=== PATIENT | male | born 1950 | race Asian ===

== ENCOUNTER 2019-05-06 23:03 | Emergency (ER) | payer OTHER ==
[~2019-05-06] VITALS: Ht 167.6 cm; Wt 68.0 kg
[2019-05-06 23:11] VITALS: Ht 167.6 cm; Wt 68.0 kg
[2019-05-06 23:14] VITALS: BP 149/91
== END 2019-05-06 23:14 | disposition other institution (70) ==
LOC: ED 23:03
DX: Z02.89 Encounter for other administrative examinations (principal)